=== PATIENT | female | born 1965 | race Caucasian/White ===

== ENCOUNTER 2018-02-06 16:42 | Emergency (ER) | payer OTHER ==
--- NOTE | 2018-02-06 17:28 | RAD REPORT ---
EXAM DESCRIPTION: CT - Stone Protocol - 02/06/2018 5:20 pm CLINICAL HISTORY: Flank pain. ABD PAIN COMPARISON: Abdomen Pelvis W Contrast dated 10/30/2017; THORAX WO CONTRAST dated 09/06/2014 TECHNIQUE: Axial images were obtained without oral or IV contrast. Lack of contrast limits solid org an and vascular assessment. The [id number] spans the entirety of the system partially obscuring uppermost abdomen and lung bases. Coronal reformatted images were obtained and reviewed. All CT scans are performed using dose optimization technique as appropriate and may include automated exposure control or mA/KV adjustment according to patient size. FINDINGS: The lung bases are mildly emphysematous. Imaged portions of the liver and spleen show no suspicious findings on non-contrast imaging.Cholecyst ectomy clips. The pancreas and adrenal glands are normal. No pathologic lymphadenopathy in the abdome n or pelvis. Aortic atherosclerosis No urinary tract stones or obstructive uropathy. No bowel obstruction, free air, free fluid or abscess. Appendectomy. No significant bony abnormality. [id number] lumbosacral degenerative change. IMPRESSION: No urinary tract stones or obstructive uropathy.
--- NOTE | 2018-02-06 17:32 | EDPHYS ---
Physician Documentation [facility] Name: Cheryl Ovalles Age: 53 yrs Sex: Female : 1965 Arrival Date: 02/06/2018 Time: 16:44 Bed 15 Private MD: Олег Flores E ED Physician Chucho Martinez HPI: 02/06 17:22 This 53 yrs old Female presents to ER via Wheelchair with complaints of snw Abdominal Pain. 17:22 The patient presents with abdominal pain right lower quadrant. Onset: The snw symptoms/episode began/occurred suddenly, just prior to arrival, today. The symptoms do not radiate. Associated signs and symptoms: none. The symptoms are described as sharp. Severity of pain: At its worst the pain was moderate. The patient has not experienced similar symptoms in the past. just finished Levaquin and Prednisone for URI. 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 LMP N/A - Hysterectomy aj Historical: - Allergies: 16:54 Imitrex; aj - Home Meds: 16:54 Cymbalta 60 mg oral cpDR 1 cap once daily [Active]; metformin 500 mg Oral tr24 1 tab aj twice a day [Active]; losartan oral oral [Active]; Plavix 75 mg Oral tab 1 tab once daily [Active]; topiramate oral oral [Active]; Amitriptyline Oral [Active]; Simvastatin Oral [Active]; Ranitidine Oral [Active]; gabapentin oral oral [Active]; hydrocodone-acetaminophen 7.5-325 mg Oral tab 1 tab every 6 hours [Active]; Promethazine Oral [Active]; promethazine-codeine 6.25-10 mg/5 mL Oral syrp 5 mL every 6 hours [Active]; Xanax Oral [Active]; - PMHx: 16:54 Hypertension; Fibromyalgia; Chronic pain; aj - PSHx: 16:54 Heart stents; Cholecystectomy; Appendectomy; Hysterectomy; aj - Immunization history:: Adult Immunizations up to date. - Social history:: Smoking status: Patient uses tobacco products, smokes one pack cigarettes per day. - Ebola Screening: : Patient negative for fever greater than or equal to 101.5 degrees Fahrenheit, and additional compatible Ebola Virus Disease symptoms Patient denies exposure to infectious person Patient denies travel to an Ebola-affected area in the 21 days before illness onset No symptoms or risks identified at this time. ROS: 17:19 Constitutional: Negative for fever, chills, and weight loss, Eyes: Negative for injury, snw pain, redness, and discharge, ENT: Negative for injury, pain, and discharge, Neck: Negative for injury, pain, and swelling, Back: Negative for injury and pain, : Negative for injury, bleeding, discharge, and swelling, MS/Extremity: Negative for injury and deformity, Skin: Negative for injury, rash, and discoloration, Neuro: Negative for headache, weakness, numbness, tingling, and seizure. 17:19 Cardiovascular: Positive for 17:19 Respiratory: Negative for cough. 17:19 Abdomen/GI: Positive for abdominal pain, of the right lower quadrant. Exam: 17:18 Head/Face: Normocephalic, atraumatic. Eyes: Pupils equal round and reactive to light, snw extra-ocular motions intact. Lids and lashes normal. Conjunctiva and sclera are non-icteric and not injected. Cornea within normal limits. Periorbital areas with no swelling, redness, or edema. ENT: Nares patent. No nasal discharge, no septal abnormalities noted. Tympanic membranes are normal and external auditory canals are clear. Oropharynx with no redness, swelling, or masses, exudates, or evidence of obstruction, uvula midline. Mucous membranes moist. Neck: Trachea midline, no thyromegaly or masses palpated, and no cervical lymphadenopathy. Supple, full range of motion without nuchal rigidity, or vertebral point tenderness. No Meningismus. Chest/axilla: Normal chest wall appearance and motion. Nontender with no deformity. No lesions are appreciated. 17:18 Abdomen/GI: Soft, non-tender, with normal bowel sounds. No distension or tympany. No guarding or rebound. No evidence of tenderness throughout. Back: No spinal tenderness. No costovertebral tenderness. Full range of motion. Skin: Warm, dry with normal turgor. Normal color with no rashes, no lesions, and no evidence of cellulitis. MS/ Extremity: Pulses equal, no cyanosis. Neurovascular intact. Full, normal range of motion. Neuro: Awake and alert, GCS 15, oriented to person, place, time, and situation. Cranial nerves II-XII grossly intact. Motor strength 5/5 in all extremities. Sensory grossly intact. Cerebellar exam normal. Normal gait. 17:18 Constitutional: The patient appears alert, awake, obese. 17:18 Cardiovascular: Rate: tachycardic, Rhythm: regular. 17:18 Respiratory: the patient does not display signs of respiratory distress, Respirations: shallow respirations, Breath sounds: are clear throughout, heavy cigarette odor . Vital Signs: 16:54 BP 98 / 66; Pulse 102; Resp 20; Temp 98.6; Pulse Ox 95% on R/A; Weight 88 kg; Height 5 aj ft. 4 in. (162.56 cm); 17:47 BP 103 / 67; Pulse 98; Resp 17; Pulse Ox 99% on R/A; rb1 16:54 Body Mass Index 33.30 (88.00 kg, 162.56 cm) aj MDM: 17:04 Patient medically screened. snw 17:33 Data reviewed: vital signs, nurses notes. Data interpreted: Pulse oximetry: on room air snw is 95 %. Interpretation: acceptable. Counseling: I had a detailed discussion with the patient and/or guardian regarding: the historical points, exam findings, and any diagnostic results supporting the discharge/admit diagnosis, radiology results, the need for outpatient follow up, to return to the emergency department if symptoms worsen or persist or if there are any questions or concerns that arise at home. Special discussion: Based on the patient's Hx, exam, and Dx evaluation, there is no indication for emergent surgery or inpatient Tx. It is understood by the patient/guardian that if the Sx's persist or worsen they need to return immediately for re-evaluation. Based on the history and exam findings, there is no indication for further emergent testing or inpatient evaluation. I discussed with the patient/guardian the need to see the primary care provider for further evaluation of the symptoms. Medical screen evaluation completed. EMTALA emergency medical condition absent. 02/06 16:54 Order name: Urine Culture [facility] 02/06 16:54 Order name: Urine Microscopic Only [facility] 02/06 17:04 Order name: CT Stone Protocol; Complete Time: 17:30 [facility] 02/06 18:28 Order name: Urine Dipstick--Ancillary (enter results) [facility] 02/06 18:28 Order name: Urine --Ancillary (enter results) 02/06 16:54 Order name: Urine Dipstick-Ancillary (obtain specimen); Complete Time: 18:26 snw Administered Medications: 17:47 Drug: TORadol 60 mg Route: IM; Site: left gluteus; rb1 18:10 Follow up: Response: No adverse reaction; Pain is decreased rb1 Disposition: 18:44 Co-signature as Attending Physician, Chucho Martinez MD I agree with the assessment and kdr plan of care. Disposition: 02/06/18 17:32 Discharged to Home. Impression: Lower abdominal pain, unspecified. - Condition is Stable. - Discharge Instructions: Abdominal Pain, Adult, Pain Without a Known Cause. - Prescriptions for Gas- X Ultra-Strength - take 1 unit by ORAL route 1-3 times daily; 1 box. Bentyl 20 mg Oral Tablet - take 1 tablet by ORAL route every 6 hours As needed; 20 tablet. - Medication Reconciliation Form, Thank You Letter, Antibiotic Education, Prescription Opioid Use form. - Follow up: Олег Flores MD; When: 48 Hours; Reason: Recheck today's complaints, Continuance of care, Re-evaluation by your physician. Follow up: Emergency Department; When: As needed; Reason: Worsening of condition. Signatures: Dispatcher [employer] EDChristy Mcmillan RN RN Chucho Kim MD MD [facility] Soila Erazo, CERTIFIED ENERGY MANAGER-C CERTIFIED ENERGY MANAGER-Csnw Breana Still, RN RN rb1 Corrections: (The following items were deleted from the chart) 18:32 17:32 02/06/2018 17:32 Discharged to Home. Impression: Lower abdominal pain, rb1 unspecified. Condition is Stable. Forms are Medication Reconciliation Form, Thank You Letter, Antibiotic Education, Prescription Opioid Use. Follow up: Олег Flores; When: 48 Hours; Reason: Recheck today's complaints, Continuance of care, Re-evaluation by your physician. Follow up: Emergency Department; When: As needed; Reason: Worsening of condition. snw
--- NOTE | 2018-02-06 17:32 | ER ---
Nurse's Notes [facility] Name: Cheryl Ovalles Age: 53 yrs Sex: Female : 1965 Arrival Date: 02/06/2018 Time: 16:44 Bed 15 Private MD: Олег Flores E Diagnosis: Lower abdominal pain, unspecified Presentation: 02/06 16:50 Presenting complaint: Patient states: RLQ abdominal pain that started suddenly [place]. Patient ambulated in to ER with steady gait. Transition of care: patient was not received from another setting of care. Onset of symptoms was February 06, 2018. Risk Assessment: Do you want to hurt yourself or someone else? Patient reports no desire to harm self or others. Initial Sepsis Screen: Does the patient meet any 2 criteria? No. Patient's initial sepsis screen is negative. Does the patient have a suspected source of infection? No. Patient's initial sepsis screen is negative. Care prior to arrival: None. 16:50 Method Of Arrival: Wheelchair aj 16:50 Acuity: ALEXANDER 3 aj Triage Assessment: 16:54 General: Appears in no apparent distress. comfortable, Behavior is calm, cooperative, aj appropriate for age. Pain: Complains of pain in right lower quadrant. Neuro: Level of Consciousness is awake, alert, obeys commands, Oriented to person, place, time, situation, Appropriate for age. Respiratory: Airway is patent Respiratory effort is even, unlabored, Respiratory pattern is regular, symmetrical. GI: Abdomen is obese, Reports lower abdominal pain. Derm: Skin is intact, is healthy with good turgor, Skin is pink, warm \T\ dry. normal. 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 aj Historical: - Allergies: 16:54 Imitrex; aj - Home Meds: 16:54 Cymbalta 60 mg oral cpDR 1 cap once daily [Active]; metformin 500 mg Oral tr24 1 tab aj twice a day [Active]; losartan oral oral [Active]; Plavix 75 mg Oral tab 1 tab once daily [Active]; topiramate oral oral [Active]; Amitriptyline Oral [Active]; Simvastatin Oral [Active]; Ranitidine Oral [Active]; gabapentin oral oral [Active]; hydrocodone-acetaminophen 7.5-325 mg Oral tab 1 tab every 6 hours [Active]; Promethazine Oral [Active]; promethazine-codeine 6.25-10 mg/5 mL Oral syrp 5 mL every 6 hours [Active]; Xanax Oral [Active]; - PMHx: 16:54 Hypertension; Fibromyalgia; Chronic pain; aj - PSHx: 16:54 Heart stents; Cholecystectomy; Appendectomy; Hysterectomy; aj - Immunization history:: Adult Immunizations up to date. - Social history:: Smoking status: Patient uses tobacco products, smokes one pack cigarettes per day. - Ebola Screening: : Patient negative for fever greater than or equal to 101.5 degrees Fahrenheit, and additional compatible Ebola Virus Disease symptoms Patient denies exposure to infectious person Patient denies travel to an Ebola-affected area in the 21 days before illness onset No symptoms or risks identified at this time. Screenin:00 Abuse screen: Denies threats or abuse. Nutritional screening: No deficits noted. rb1 Tuberculosis screening: No symptoms or risk factors identified. Fall Risk None identified. Assessment: 17:00 General: Appears in no apparent distress. comfortable, Behavior is calm, cooperative. rb1 Pain: Complains of pain in right lower quadrant Pain currently is 9 out of 10 on a pain scale. Neuro: Level of Consciousness is awake, alert, obeys commands, Oriented to person, place, time, situation. Cardiovascular: Capillary refill < 3 seconds is brisk in bilateral fingers. Respiratory: Airway is patent Respiratory effort is even, unlabored, Respiratory pattern is regular, symmetrical. GI: Bowel sounds present X 4 quads. Abd is soft Abdomen is tender to palpation in right lower quadrant Reports nausea. : No signs and/or symptoms were reported regarding the genitourinary system. Derm: Skin is pink, warm \T\ dry. 18:00 Reassessment: Patient appears in no apparent distress at this time. Patient and/or rb1 family updated on plan of care and expected duration. Pain level reassessed. Patient is alert, oriented x 3, equal unlabored respirations, skin warm/dry/pink. Patient states symptoms have improved. Vital Signs: 16:54 BP 98 / 66; Pulse 102; Resp 20; Temp 98.6; Pulse Ox 95% on R/A; Weight 88 kg; Height 5 aj ft. 4 in. (162.56 cm); 17:47 BP 103 / 67; Pulse 98; Resp 17; Pulse Ox 99% on R/A; rb1 16:54 Body Mass Index 33.30 (88.00 kg, 162.56 cm) ED Course: 16:44 Patient arrived in ED. as 16:44 Олег Flores MD is Private Physician. as 16:51 Triage completed. aj 16:54 Soila Erazo FNP-C [facility]. snw 16:54 Chucho Martinez MD is Attending Physician. snw 16:54 Arm band placed on left wrist. Patient placed in an exam room. aj 17:00 Patient has correct armband on for positive identification. Bed in low position. Call rb1 light in reach. Side rails up X 1. Pulse ox on. NIBP on. 17:00 Warm blanket given. rb1 17:20 CT Stone Protocol In Process Unspecified. EDMS 17:21 CT completed. Patient moved to CT via wheelchair. cw1 17:31 Олег Flores MD is Referral Physician. snw 17:41 Breana Still, RN is Primary Nurse. rb1 18:20 No provider procedures requiring assistance completed. Patient did not have IV access rb1 during this emergency room visit. 18:26 Urine collected: clean catch specimen, clear. dh3 Administered Medications: 17:47 Drug: TORadol 60 mg Route: IM; Site: left gluteus; rb1 18:10 Follow up: Response: No adverse reaction; Pain is decreased rb1 Outcome: 17:32 Discharge ordered by . snw 18:20 Patient left the ED. rb1 18:20 Discharged to home via wheelchair, with family. rb1 18:20 Condition: stable 18:20 Discharge instructions given to patient, Instructed on discharge instructions, follow up and referral plans. medication usage, Demonstrated understanding of instructions, follow-up care, medications, Prescriptions given X 2. Signatures: Dispatcher [employer] Christy Colin RN RN aj Therrien, Shelly, FNP-C FNP-Kristin Gupta Crystal cw1 Breana Still, RN RN rb1 Maria Elena Clemente 3 Corrections: (The following items were deleted from the chart) 19:17 18:32 Patient left the ED. rb1 rb1 19:20 18:10 Patient left the ED. rb1 rb1
[2018-02-06] MEDS ORDERED: KETOROLAC 30 MG/ML INJ ONE (17:47)
[2018-02-06 18:45] VITALS: BP 98/66; TEMP 98.6; O2SAT 95
[2018-02-06 18:45] LABS: Urine Blood NEGATIVE (NEG); Urine Glucose NEGATIVE (NEG); Urine Protein NEGATIVE (NEG); Urine Specific Gravity 1.025 (1.005-1.030); Urine pH 5.5 (5.0-7.0)
[2018-02-06 18:46] LABS: Urine Bacteria 20-50 /HPF (<20); Urine Culture Reflex Order NOT NEEDED; Urine Mucus 3+ /HPF (NONE SEEN); Urine RBC <5 /HPF (NONE SEEN)
== END 2018-02-06 18:32 | disposition home or self-care (01) ==
LOC: ER 16:42
DX: R10.31 Right lower quadrant pain (principal); I10 Essential (primary) hypertension; F17.210 Nicotine dependence, cigarettes, uncomplicated; Z79.01 Long term (current) use of anticoagulants; Z88.8 Allergy status to other drugs, medicaments and biological substances; Z95.818 Presence of other cardiac implants and grafts
CPT/HCPCS: 74176; 76377; 81003; 81015; 81025; 87086; 87088; 96372; 99284

== ENCOUNTER 2018-05-18 10:36 | Emergency (ER) | payer OTHER ==
--- OUTSIDE RECORDS SUMMARY | 2018-05-18 10:38 | XMS REPORT ---
:1965 [facility] Address [address] [place] [address] [address] [place] [address] Care Team Providers Name Role Phone Unavailable Unavailable Unavailable Payers Payer Name Policy Type Policy Number Effective Date Expiration Date Problems This patient has no known problems. Allergies, Adverse Reactions, Alerts Allergy Name Allergy Status Severity Reaction(s) Onset Inactive Treating Comments Type Date Date Clinician sumatriptan DA Active U 2018-03 00:00:0 0 Medications This patient has no known medications.
[2018-05-18] MEDS ORDERED: ONDANSETRON 4 MG (ODT) TAB ONE (11:13)
[2018-05-18] MEDS ORDERED: PROMETHAZINE 25 MG TABLET ONE (11:16)
--- NOTE | 2018-05-18 13:55 | RAD REPORT ---
EXAM DESCRIPTION: RAD - Knee Left 3 View - 05/18/2018 1:49 pm CLINICAL HISTORY: PAIN COMPARISON: No comparisons FINDINGS: Mild osteoarthritic changes are present. No fracture, dislocation or evidence of joint eff usion.
--- NOTE | 2018-05-18 13:59 | RAD REPORT ---
EXAM DESCRIPTION: RAD - Lumbar Spine 3 Views - 05/18/2018 1:53 pm CLINICAL HISTORY: PAIN Radiculopathy COMPARISON: No comparisons FINDINGS: Vertebral body heights appear maintained. No compression fracture noted. Disc thinning wit h small posterior osteophyte is present in the lower lumbar levels. No spondylolysis or spondylolisth esis. Atherosclerosis of the abdominal aorta. Cholecystectomy clips are seen. IMPRESSION: Mild lower lumbar spondylosis.
--- NOTE | 2018-05-18 14:07 | ER ---
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 Transition of care: patient was not received from another setting of care. Onset of symptoms was May 18, 2018. Risk Assessment: Do you want to hurt yourself or someone else? Patient reports no desire to harm self or others. Initial Sepsis Screen: Does the patient meet any 2 criteria? No. Patient's initial sepsis screen is negative. Does the patient have a suspected source of infection? No. Patient's initial sepsis screen is negative. Care prior to arrival: None. 10:40 Method Of Arrival: Ambulatory 10:40 Acuity: ALEXANDER 4 Triage Assessment: 10:44 General: Appears in no apparent distress. uncomfortable, Behavior is calm, cooperative, hj appropriate for age. Pain: Complains of pain in left knee, back Pain currently is 9 out of 10 on a pain scale. Musculoskeletal: Circulation, motion, and sensation intact. 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 LMP N/A - Hysterectomy Historical: - Allergies: 10:44 Imitrex; - Home Meds: 10:44 Amitriptyline Oral [Active]; Cymbalta 60 mg Oral cpDR 1 cap once daily [Active]; gabapentin Oral [Active]; hydrocodone-acetaminophen 7.5-325 mg Oral tab 1 tab every 6 hours [Active]; losartan Oral [Active]; metformin 500 mg Oral tr24 1 tab twice a day [Active]; Plavix 75 mg Oral tab 1 tab once daily [Active]; Promethazine Oral [Active]; promethazine-codeine 6.25-10 mg/5 mL Oral syrp 5 mL every 6 hours [Active]; Ranitidine Oral [Active]; Simvastatin Oral [Active]; Xanax Oral [Active]; topiramate Oral [Active]; - PMHx: 10:44 Chronic pain; Fibromyalgia; Hypertension; hj - PSHx: 10:44 Heart stents; Cholecystectomy; Appendectomy; Hysterectomy; hj - Immunization history:: Adult Immunizations up to date. - Social history:: Smoking status: Patient uses tobacco products, Patient uses alcohol, occasionally. - Ebola Screening: : Patient negative for fever greater than or equal to 101.5 degrees Fahrenheit, and additional compatible Ebola Virus Disease symptoms Patient denies exposure to infectious person Patient denies travel to an Ebola-affected area in the 21 days before illness onset. Screenin:44 Abuse screen: Denies threats or abuse. Denies injuries from another. Nutritional hj screening: No deficits noted. Tuberculosis screening: No symptoms or risk factors identified. Fall Risk Fall in past 12 months (25 points). Assessment: 11:00 General: Appears in no apparent distress. comfortable, well groomed, well developed, sg well nourished, Behavior is calm, cooperative, appropriate for age. Pain: Complains of pain in left leg and left knee Quality of pain is described as aching, tender. Neuro: Level of Consciousness is awake, alert, obeys commands, Oriented to person, place, time, situation, Box Finisher are equal bilaterally Moves all extremities. Full function Gait is steady, reports pain while walking at home. Speech is normal, Facial symmetry appears normal. Cardiovascular: Patient's skin is warm and dry. Chest pain is denied. Respiratory: Airway is patent Respiratory effort is even, unlabored, Respiratory pattern is regular, symmetrical, Breath sounds are clear. GI: Reports nausea, reports having a script for Phenergan at home but has not had it filled recently. : No signs and/or symptoms were reported regarding the genitourinary system. EENT: No deficits noted. EENT: No signs and/or symptoms were reported regarding the EENT system. Oral mucosa is moist. Derm: Skin is pink, warm \T\ dry. Musculoskeletal: No signs and/or symptoms reported regarding the musculoskeletal system. 11:48 Reassessment: Patient appears in no apparent distress at this time. pt requesting pain sg medication at this time, notified, pt is currently being treated by pain management docotor, offered non pharm measures at this time. 12:35 Reassessment: Patient appears in no apparent distress at this time. xray contacted, sg spoke with Lucy, informed that the order is received and awaiting an available xray room at this time, pt updated on approx wait time, will continue to monitor. 12:56 Reassessment: Patient appears in no apparent distress at this time. Patient and/or tw2 family updated on plan of care and expected duration. Pain level reassessed. Patient is alert, oriented x 3, equal unlabored respirations, skin warm/dry/pink. 14:30 Reassessment: Patient appears in no apparent distress at this time. Patient and/or tw2 family updated on plan of care and expected duration. Pain level reassessed. Patient is alert, oriented x 3, equal unlabored respirations, skin warm/dry/pink. Vital Signs: 10:45 BP 103 / 68; Pulse 84; Resp 16; Temp 97.8(TE); Pulse Ox 98% on R/A; Weight 89.36 kg; hj Height 5 ft. 1 in. (154.94 cm); Pain 9/10; 12:56 BP 98 / 81; Pulse 80; Resp 16; Pulse Ox 96% on R/A; tw2 14:30 BP 99 / 73; Pulse 82; Resp 16; Pulse Ox 97% on R/A; tw2 10:45 Body Mass Index 37.22 (89.36 kg, 154.94 cm) ED Course: 10:40 Patient arrived in ED. hj 10:43 Triage completed. hj 10:45 Arm band placed on right wrist. hj 10:46 Patient has correct armband on for positive identification. Bed in low position. Call hj light in reach. Side rails up X 1. uses cane. 10:53 Remigio Christianson MD is Attending Physician. gs 11:01 Pete Harrison, RN is Primary Nurse. mh5 11:14 Awaiting for x-ray. sg 11:51 Elevated left leg pt continues to sit in the wheelchair at this time for comfort. sg 12:54 Micheline Fuentes, AJ is Primary Nurse. tw2 13:48 X-ray completed. jr1 13:49 Lumbar Spine (3 Views) XRAY In Process Unspecified. EDMS 13:49 Knee Left 3 View In Process Unspecified. EDMS 14:32 No provider procedures requiring assistance completed. Patient did not have IV access tw2 during this emergency room visit. 14:32 Kulwinder wrap to left knee CMS intact. tw2 Administered Medications: 11:11 Drug: Phenergan 25 mg Route: PO; 11:51 Follow up: Response: No adverse reaction; Nausea is decreased Outcome: 14:06 Discharge ordered by . 14:32 Discharged to home via wheelchair. tw2 14:32 Condition: stable 14:32 Discharge instructions given to patient, Instructed on discharge instructions, follow up and referral plans. Demonstrated understanding of instructions, follow-up care. 14:33 Patient left the ED. tw2 Signatures: Dispatcher [employer] EDMS Pete Harrison RN RN Sonali Smith jr1 Jovanny Aldana RN RN Micheline Fuentes RN RN 2 Julieta Poon [facility] Remigio Christianson MD MD Corrections: (The following items were deleted from the chart) 10:47 10:45 Pulse 84bpm; Resp 16bpm; Pulse Ox 98% RA; Temp 97.8F Temporal; 89.36 kg; Height 5 hj ft. 1 in.; BMI: 37.2; Pain 9/10; hj 14:31 14:30 BP 99 / 73; Pulse 82bpm; Resp 6bpm; Pulse Ox 97% RA; tw2 tw2
--- NOTE | 2018-05-18 14:07 | EDPHYS ---
Physician Documentation [facility] Name: Cheryl Ovalles Age: 53 yrs Sex: Female : 1965 Arrival Date: 05/18/2018 Time: 10:40 Bed 14 Private MD: ED Physician Remigio Christianson HPI: 05/18 13:01 This 53 yrs old Female presents to ER via Ambulatory with complaints of Knee gs Pain, Back Pain. 13:03 Details of fall: The patient fell from seated position, out of a chair, in the shower. gs Onset: The symptoms/episode began/occurred 3 day(s) ago. Associated injuries: The patient sustained injury to the low back, contusion, left knee. Severity of symptoms: At their worst the symptoms were moderate, in the emergency department the symptoms are unchanged. The patient has experienced similar episodes in the past, a few times. The patient has not recently seen a physician. 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 - Hysterectomy hj Historical: - Allergies: 10:44 Imitrex; hj - Home Meds: 10:44 Amitriptyline Oral [Active]; Cymbalta 60 mg Oral cpDR 1 cap once daily [Active]; hj gabapentin Oral [Active]; hydrocodone-acetaminophen 7.5-325 mg Oral tab 1 tab every 6 hours [Active]; losartan Oral [Active]; metformin 500 mg Oral tr24 1 tab twice a day [Active]; Plavix 75 mg Oral tab 1 tab once daily [Active]; Promethazine Oral [Active]; promethazine-codeine 6.25-10 mg/5 mL Oral syrp 5 mL every 6 hours [Active]; Ranitidine Oral [Active]; Simvastatin Oral [Active]; Xanax Oral [Active]; topiramate Oral [Active]; - PMHx: 10:44 Chronic pain; Fibromyalgia; Hypertension; hj - PSHx: 10:44 Heart stents; Cholecystectomy; Appendectomy; Hysterectomy; hj - Immunization history:: Adult Immunizations up to date. - Social history:: Smoking status: Patient uses tobacco products, Patient uses alcohol, occasionally. - Ebola Screening: : Patient negative for fever greater than or equal to 101.5 degrees Fahrenheit, and additional compatible Ebola Virus Disease symptoms Patient denies exposure to infectious person Patient denies travel to an Ebola-affected area in the 21 days before illness onset. ROS: 13:03 All other systems are negative. gs Exam: 13:03 Head/Face: Normocephalic, atraumatic. Eyes: Pupils equal round and reactive to light, gs extra-ocular motions intact. Lids and lashes normal. Conjunctiva and sclera are non-icteric and not injected. Cornea within normal limits. Periorbital areas with no swelling, redness, or edema. ENT: Nares patent. No nasal discharge, no septal abnormalities noted. Tympanic membranes are normal and external auditory canals are clear. Oropharynx with no redness, swelling, or masses, exudates, or evidence of obstruction, uvula midline. Mucous membranes moist. Neck: Trachea midline, no thyromegaly or masses palpated, and no cervical lymphadenopathy. Supple, full range of motion without nuchal rigidity, or vertebral point tenderness. No Meningismus. Chest/axilla: Normal chest wall appearance and motion. Nontender with no deformity. No lesions are appreciated. Cardiovascular: Regular rate and rhythm with a normal S1 and S2. No gallops, murmurs, or rubs. Normal PMI, no JVD. No pulse deficits. Respiratory: Lungs have equal breath sounds bilaterally, clear to auscultation and percussion. No rales, rhonchi or wheezes noted. No increased work of breathing, no retractions or nasal flaring. Abdomen/GI: Soft, non-tender, with normal bowel sounds. No distension or tympany. No guarding or rebound. No evidence of tenderness throughout. Skin: Warm, dry with normal turgor. Normal color with no rashes, no lesions, and no evidence of cellulitis. Neuro: Awake and alert, GCS 15, oriented to person, place, time, and situation. Cranial nerves II-XII grossly intact. Motor strength 5/5 in all extremities. Sensory grossly intact. Cerebellar exam normal. Normal gait. 13:03 Constitutional: The patient appears in no acute distress, alert, awake. 13:03 Back: vertebral tenderness, is appreciated at L3. 13:03 Musculoskeletal/extremity: ROM: no acute changes, Circulation is intact in all extremities. Joints: the left knee displays tenderness. Vital Signs: 10:45 BP 103 / 68; Pulse 84; Resp 16; Temp 97.8(TE); Pulse Ox 98% on R/A; Weight 89.36 kg; hj Height 5 ft. 1 in. (154.94 cm); Pain 9/10; 12:56 BP 98 / 81; Pulse 80; Resp 16; Pulse Ox 96% on R/A; tw2 14:30 BP 99 / 73; Pulse 82; Resp 16; Pulse Ox 97% on R/A; tw2 10:45 Body Mass Index 37.22 (89.36 kg, 154.94 cm) MDM: 11:03 Patient medically screened. 13:03 Differential diagnosis: abrasion, contusion, fracture. Data reviewed: vital signs, nurses notes. Response to treatment: the patient's symptoms have markedly improved after treatment, and as a result, I will discharge patient. 14:06 Counseling: I had a detailed discussion with the patient and/or guardian regarding: the gs historical points, exam findings, and any diagnostic results supporting the discharge/admit diagnosis, radiology results, the need for outpatient follow up. 05/18 11:07 Order name: Lumbar Spine (3 Views) XRAY; Complete Time: 14:05 05/18 13:40 Order name: Knee Left 3 View; Complete Time: 14:05 EDMS 05/18 14:31 Order name: Kulwinder Wrap; Complete Time: 14:31 tw2 Administered Medications: 11:11 Drug: Phenergan 25 mg Route: PO; 11:51 Follow up: Response: No adverse reaction; Nausea is decreased Disposition: 05/18/18 14:06 Discharged to Home. Impression: Sprain of ligaments of lumbar spine, Sprain of other specified parts of left knee. - Condition is Stable. - Discharge Instructions: Knee Sprain, Back Exercises, Klmd-id-[id number]. - Work release form, Medication Reconciliation Form, Thank You Letter, Antibiotic Education, Prescription Opioid Use form. - Follow up: Private Physician; When: 2 - 3 days; Reason: Re-evaluation by your physician. Signatures: Dispatcher [employer] EDUT Pete Harrison RN RN Jovanny Aldana RN RN Micheline Fuentes RN RN tw2 Remigio Christianson MD MD Corrections: (The following items were deleted from the chart) 13:40 11:07 Knee Right 3 View+RAD.RAD.BRZ ordered. EDUT EDUT 14:33 14:06 05/18/2018 14:06 Discharged to Home. Impression: Sprain of ligaments of lumbar tw2 spine; Sprain of other specified parts of left knee. Condition is Stable. Forms are Medication Reconciliation Form, Thank You Letter, Antibiotic Education, Prescription Opioid Use. Follow up: Private Physician; When: 2 - 3 days; Reason: Re-evaluation by your physician. gs
[2018-05-18 14:38] VITALS: TEMP 97.8
[2018-05-18 14:40] VITALS: BP 99/73; O2SAT 97
== END 2018-05-18 14:33 | disposition home or self-care (01) ==
LOC: ER 10:36
DX: S33.5XXA Sprain of ligaments of lumbar spine, initial encounter (principal); S83.92XA Sprain of unspecified site of left knee, initial encounter; W18.2XXA Fall in (into) shower or empty bathtub, initial encounter; Y93.89 Activity, other specified; Y92.002 Bathroom of unspecified non-institutional (private) residence as the place of occurrence of the external cause; I10 Essential (primary) hypertension; M79.7 Fibromyalgia; Z88.8 Allergy status to other drugs, medicaments and biological substances
CPT/HCPCS: 72100; 99284

== ENCOUNTER 2019-01-20 17:19 | Emergency (ER) | payer OTHER ==
--- OUTSIDE RECORDS SUMMARY | 2019-01-20 17:21 | XMS REPORT ---
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 Assessment Simple chronic bronchitis J41.0 Active Assessment Tobacco abuse counseling Z71.6 Active Problem Diabetes 1.5, 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 Problem Other chronic pain G89.29 Active Problem PTSD (post-traumatic stress F43.10 Active disorder) Assessment PTSD (post-traumatic stress F43.10 Active disorder) Assessment Chronic prescription benzodiazepine Z79.899 Active use Problem Simple chronic bronchitis J41.0 Active Medications Medication Code Code Instructions Start End Status Dosage System Date Date Baclofen [facility] 52656753694 20 MG Orally Active 1 tablet every 8 hrs with food or milk Alprazolam [facility] 76618745394 2 MG Orally Active 1 tablet Twice a day Topiramate ER [facility] [address]-84 200 MG Orally Active 1 capsule Once a day Cymbalta [facility] 56776029465 60 MG Orally Active 1 capsule Once a day Gabapentin [facility] 44250612833 100 MG Orally Active 1 capsule Three times a day Krill Oil [facility] 83462253232 1000 MG Orally Active not defined MegaRed [place]-3 ND 98801851189 500 MG Orally Active not Krill Oil defined Amitriptyline [facility] 17258614917 150 MG Orally Active 1 tablet HCl Once a day Metformin HCl [facility] 45635076659 500 MG Orally Active 1 tablet Once a day with a meal Promethazine HCl [facility] 06976047674 6.25 MG/5ML Active 10 ml as Orally every 6 needed hrs Hydrocodone-Acet [facility] 88187749788 10-325 MG Active 1 tablet aminophen Orally every 6 as needed hrs Colestipol HCl [facility] 24533601636 1 GM Orally Active 2 tablets Once a day Cinnamon [facility] 16065870116 500 MG Orally Active not defined Apple Cider [facility] [address]-09 600 MG Orally Active not Vinegar defined Ibuprofen [facility] 45336267356 800 MG Orally Active 1 tablet Three times a with food day or milk as needed Isosorbide [facility] 80201885591 20 MG Orally Active 1 tablet Mononitrate Twice a day Myrbetriq [facility] 57512014782 50 MG Orally Active 1 tablet Once a day Simvastatin [facility] 25448185072 40 MG Orally Active 1 tablet Once a day in the evening Clopidogrel [facility] 78761906226 75 MG Orally Active 1 tablet Bisulfate Once a day Losartan [facility] 47293493926 50 MG Orally Active 1 tablet Potassium Once a day ProAir HFA [facility] 24519746626 108 (90 Base) Active 2 puffs MCG/ACT as needed Inhalation every 6 hrs Diflucan [facility] 71828383403 150 MG Orally December 17, Active 1 tablet Once a day 2017 Ranitidine HCl [facility] 12096114996 300 MG Orally Active 1 capsule Once a day at bedtime Pantoprazole [facility] 87044477814 40 MG Orally Active 1 tablet Sodium Once a day Albuterol [facility] 42494428797 Active not defined Benzonatate [facility] 75507142163 100 MG Orally Active 1 capsule Three times a as needed day Results No Known Results Summary Purpose eClinicalWorks Submission
--- OUTSIDE RECORDS SUMMARY | 2019-01-20 17:21 | XMS REPORT ---
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 53691154470 20 MG Orally Active 1 tablet every 8 hrs with food or milk Amitriptyline [facility] 02898410464 150 MG Orally Active 1 tablet HCl Once a day Cymbalta [facility] 67203034087 60 MG Orally Active 1 capsule Once a day Metformin HCl [facility] 89424458498 500 MG Orally Active 1 tablet Once a day with a meal Colestipol HCl ND 69193040197 1 GM Orally Active 2 tablets Once a day Apple Cider [facility] [address]-31 600 MG Orally Active not Vinegar defined Krill Oil [facility] 11608794782 1000 MG Orally Active not defined Ibuprofen ND 08602917010 800 MG Orally Active 1 tablet Three times a with food day or milk as needed Topiramate ER [facility] [address]-70 200 MG Orally Active 1 capsule Once a day ProAir HFA [facility] 91396077041 108 (90 Base) Active 2 puffs MCG/ACT as needed Inhalation every 6 hrs Gabapentin ND 86607536360 100 MG Orally Active 1 capsule Three times a day MegaRed [place]-3 ND 54780049761 500 MG Orally Active not Krill Oil defined Cinnamon ND 79639259021 500 MG Orally Active not defined Alprazolam ND 49530883855 2 MG Orally Active 1 tablet Twice a day Isosorbide [facility] 73072148677 20 MG Orally Active 1 tablet Mononitrate Twice a day Losartan [facility] 20088454970 50 MG Orally Active 1 tablet Potassium Once a day Myrbetriq [facility] 25315005051 50 MG Orally Sept Active 1 tablet Once a day [address] [facility] 28388008695 50 Active TAKE 1 Potassium TABLET BY MOUTH DAILY. Simvastatin [facility] 69161767244 40 MG Orally Active 1 tablet Once a day in the evening Clopidogrel [facility] 70068663681 75 MG Orally Active 1 tablet Bisulfate Once a day VESIcare [facility] 57304498021 5 MG Orally September Active 1 tablet Once a day [address] [facility] 86591695200 300 MG Orally Active 1 capsule Once a day at bedtime Promethazine HCl [facility] 43788910512 6.25 MG/5ML Active 10 ml as Orally every 6 needed hrs Diflucan [facility] 85121404512 150 MG Orally December 17, Active 1 tablet Once a day [address] [facility] 83342805765 100 MG Orally Active 1 capsule Three times a as needed day Albuterol [facility] 47713303682 Active not defined Pantoprazole [facility] 27490586174 40 MG Orally Active 1 tablet Sodium Once a day Hydrocodone-Acet [facility] 10962621086 10-325 MG Active 1 tablet aminophen Orally every 6 as needed hrs Results No Known Results Summary Purpose eClinicalWorks Submission
--- OUTSIDE RECORDS SUMMARY | 2019-01-20 17:21 | XMS REPORT ---
:1965 [facility] Address [address] [place] [address] Care Team Providers Name Role Phone Unavailable [...]
--- OUTSIDE RECORDS SUMMARY | 2019-01-20 17:21 | XMS REPORT ---
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 Problem Tobacco abuse counseling Z71.6 Active Assessment PTSD (post-traumatic stress F43.10 Active disorder) Problem Other chronic pain G89.29 Active Problem Simple chronic bronchitis J41.0 Active Medications Medication Code Code Instructions Start End Status Dosage System Date Date Ibuprofen [facility] 35621035397 800 MG Orally Active 1 tablet Three times a with food day or milk as needed Baclofen ND 15334056400 20 MG Orally Active 1 tablet every 8 hrs with food or milk Clopidogrel ND 26641869583 75 MG Orally Active 1 tablet Bisulfate Once a day Metformin HCl ND 73457716981 500 MG Orally Active 1 tablet Once a day with a meal Colestipol HCl ND 52303114039 1 GM Orally Active 2 tablets Once a day Cinnamon ND 50677996758 500 MG Orally Active not defined Apple Cider [facility] [address]-49 600 MG Orally Active not Vinegar defined Isosorbide [facility] 23935954477 20 MG Orally Active 1 tablet Mononitrate Twice a day Topiramate ER [facility] [address]-10 200 MG Orally Active 1 capsule Once a day Pantoprazole [facility] 02153943426 40 MG Orally Active 1 tablet Sodium Once a day MegaRed [place]-3 ND 04588372002 500 MG Orally Active not Krill Oil defined Benzonatate ND 25033244832 100 MG Orally Active 1 capsule Three times a as needed day Krill Oil [facility] 01074036266 1000 MG Orally Active not defined Diflucan ND 53369906123 150 MG Orally December 17, Active 1 tablet Once a day 2017 Losartan ND 34557527613 50 MG Orally Active 1 tablet Potassium Once a day Promethazine HCl [facility] 87977454394 6.25 MG/5ML Active 10 ml as Orally every 6 needed hrs Myrbetriq [facility] 26622045073 50 MG Orally Active 1 tablet Once a day Amitriptyline [facility] 97822547976 150 MG Orally Active 1 tablet HCl Once a day Simvastatin [facility] 46913777255 40 MG Orally Active 1 tablet Once a day in the evening Alprazolam [facility] 98267376873 2 MG Orally Active 1 tablet Twice a day ProAir HFA [facility] 57747793138 108 (90 Base) Active 2 puffs MCG/ACT as needed Inhalation every 6 hrs Cymbalta [facility] 80480519808 60 MG Orally Active 1 capsule Once a day Hydrocodone-Acet [facility] 45978708211 10-325 MG Active 1 tablet aminophen Orally every 6 as needed hrs Ranitidine HCl [facility] 68994160484 300 MG Orally Active 1 capsule Once a day at bedtime Albuterol [facility] 67225516947 Active not defined Gabapentin [facility] 50610683972 100 MG Orally Active 1 capsule Three times a day Results No Known Results Summary Purpose eClinicalWorks Submission
--- OUTSIDE RECORDS SUMMARY | 2019-01-20 17:21 | XMS REPORT ---
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 Problem Tobacco abuse counseling Z71.6 Active Assessment PTSD (post-traumatic stress F43.10 Active disorder) Problem Other chronic pain G89.29 Active Problem Simple chronic bronchitis J41.0 Active Medications Medication Code Code Instructions Start End Status Dosage System Date Date Colestipol HCl [facility] 58203859380 1 GM Orally Active 2 tablets Once a day Gabapentin [facility] 55568260354 100 MG Orally Active 1 capsule Three times a day ProAir HFA [facility] 15714002068 108 (90 Base) Active 2 puffs MCG/ACT as needed Inhalation every 6 hrs Alprazolam [facility] 30166404330 1 MG Orally Active 1 tablet Twice a day Clopidogrel ND 63653669506 75 MG Orally Active 1 tablet Bisulfate Once a day Amitriptyline ND 17542957697 150 MG Orally Active 1 tablet HCl Once a day Baclofen ND 84629342473 20 MG Orally Active 1 tablet every 8 hrs with food or milk Hydrocodone-Acet [facility] 69084666453 10-325 MG Active 1 tablet aminophen Orally every 6 as needed hrs Ranitidine HCl ND 00668357303 300 MG Orally Active 1 capsule Once a day at bedtime Apple Cider [facility] [address]-14 600 MG Orally Active not Vinegar defined Diflucan ND 99426031941 150 MG Orally December 17, Active 1 tablet Once a day 2017 Cymbalta [facility] 87070572021 60 MG Orally Active 1 capsule Once a day Isosorbide [facility] 42264391994 20 MG Orally Active 1 tablet Mononitrate Twice a day Ibuprofen [facility] 28965232853 800 MG Orally Active 1 tablet Three times a with food day or milk as needed Benzonatate [facility] 41610806271 100 MG Orally Active 1 capsule Three times a as needed day MegaRed [place]-3 [facility] 42664682146 500 MG Orally Active not Krill Oil defined Promethazine HCl [facility] 01022872858 6.25 MG/5ML Active 10 ml as Orally every 6 needed hrs Topiramate ER [facility] [address]-74 200 MG Orally Active 1 capsule Once a day Pantoprazole [facility] 10995678933 40 MG Orally Active 1 tablet Sodium Once a day Albuterol [facility] 78140820451 Active not defined Losartan [facility] 68590726388 50 Active TAKE 1 Potassium TABLET BY MOUTH DAILY. Krill Oil [facility] 24835724907 1000 MG Orally Active not defined Losartan [facility] 74079287624 50 MG Orally Active 1 tablet Potassium Once a day Metformin HCl [facility] 49158799501 500 MG Orally Active 1 tablet Once a day with a meal Myrbetriq [facility] 06969172624 50 MG Orally Active 1 tablet Once a day Cinnamon ND 36248372422 500 MG Orally Active not defined Simvastatin [facility] 54661848066 40 MG Orally Active 1 tablet Once a day in the evening Results No Known Results Summary Purpose eClinicalWorks Submission
--- OUTSIDE RECORDS SUMMARY | 2019-01-20 17:21 | XMS REPORT ---
:1965 Author Organization eClinicalWorks Care Team Providers Name Role Phone Andrew Ledesma Provider Role Unavailable Allergies, Adverse Reactions, Alerts Substance Reaction Event Type Imitrex Info Not Available Drug Allergy Problems Problem Type Condition Code Onset Dates Condition Status Assessment PTSD (post-traumatic stress F43.10 Active disorder) Problem Simple chronic bronchitis J41.0 Active Assessment Tobacco abuse counseling Z71.6 Active Assessment Gastroesophageal reflux disease K21.9 Active without esophagitis Assessment Body mass index (BMI) of 35.0-35.9 Z68.35 Active in adult Assessment Diabetes 1.5, 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 84301486350 300 MG Orally Active 1 capsule Once a day at bedtime Pantoprazole [facility] 14265843012 40 MG Orally Active 1 tablet Sodium Once a day Albuterol ND 86642559820 Active not defined Losartan [facility] 86214099574 50 MG Orally Active 1 tablet Potassium Once a day VESIcare ND 67015055146 5 MG Orally September Active 1 tablet Once a day 2018 Diflucan ND 35376092807 150 MG Orally December 17, Active 1 tablet Once a day 2017 Simvastatin ND 66642955781 40 Active TAKE 1 TABLET BY MOUTH EVERY DAY IN THE EVERY NIGHT AT BEDTIME Gabapentin [facility] 85441420531 100 MG Orally Active 1 capsule Three times a day Isosorbide [facility] 41632052480 20 MG Orally Active 1 tablet Mononitrate Twice a day Bismuth [facility] 27365764379 262 MG Orally 8 December 30, Feb 28, Active 2 tablets time(s) a day 2018 2018 as needed Apple Cider [facility] [address]-77 600 MG Orally Active not Vinegar defined Myrbetriq ND 17611261548 50 MG Orally Sept Active 1 tablet Once a day 2018 Intrarosa [facility] 87888419828 6.5 mg November 30May 29, Active 1 Vaginally at 2018 2018 bedtime Metformin HCl ND 46254931679 500 Active TAKE 1 TABLET BY MOUTH TWICE DAILY. Ibuprofen ND 43832127861 800 MG Orally Active 1 tablet Three times a with food day or milk as needed Colestipol HCl ND 00556571108 1 GM Orally Active 2 tablets Once a day Hydrocodone-Acet [facility] 40744771638 10-325 MG Active 1 tablet aminophen Orally every 6 as needed hrs Topiramate ER [facility] [address]-31 200 MG Orally Active 1 capsule Once a day Cymbalta [facility] 02093852536 60 MG Orally Active 1 capsule Once a day Isosorbide [facility] 05403895467 30 Active TAKE 1 Mononitrate ER TABLET BY MOUTH DAILY ProAir HFA [facility] 24402786194 108 (90 Base) Active 2 puffs MCG/ACT as needed Inhalation every 6 hrs Promethazine HCl [facility] 11325003574 6.25 MG/5ML Active 10 ml as Orally every 6 needed hrs Clopidogrel ND 33109022558 75 MG Orally Active 1 tablet Bisulfate Once a day Amitriptyline ND 02367976406 150 MG Orally Active 1 tablet HCl Once a day Cinnamon ND 43573159201 500 MG Orally Active not defined Simvastatin ND 41828070803 40 MG Orally Active 1 tablet Once a day in the evening Baclofen ND 40496348397 20 MG Orally Active 1 tablet every 8 hrs with food or milk MegaRed Sidell-3 ND 41557826391 500 MG Orally Active not Krill Oil defined Metformin HCl ND 93393406405 500 MG Orally Active 1 tablet Once a day with a meal Alprazolam ND 87366943407 2 MG Orally Active 1 tablet Twice a day Losartan ND 15488038831 50 Active TAKE 1 Potassium TABLET BY MOUTH DAILY. Krill Oil [facility] 75731429471 1000 MG Orally Active not defined Benzonatate [facility] 48829399337 100 MG Orally Active 1 capsule Three times a as needed day Alprazolam [facility] 78494477870 2 MG Orally November 30, Active 1 tablet Twice a day prn 2018 Results No Known Results Summary Purpose eClinicalWorks Submission
--- OUTSIDE RECORDS SUMMARY | 2019-01-20 17:21 | XMS REPORT ---
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 Problem Tobacco abuse counseling Z71.6 Active Assessment PTSD (post-traumatic stress F43.10 Active disorder) Problem Other chronic pain G89.29 Active Problem Simple chronic bronchitis J41.0 Active Medications Medication Code Code Instructions Start End Status Dosage System Date Date Cymbal [facility] 87258229864 60 MG Orally Active 1 capsule Once a day Diflucan [facility] 30211021847 150 MG Orally December 17, Active 1 tablet Once a day 2017 Alprazolam ND 96376047949 1 MG Orally Active 1 tablet Twice a day Myrbetriq [facility] 21415160923 50 MG Orally Sept Active 1 tablet Once a day 2018 Albuterol [facility] 60563314950 Active not defined Colestipol HCl ND 00315721155 1 GM Orally Active 2 tablets Once a day Gabapentin [facility] 39159513380 100 MG Orally Active 1 capsule Three times a day Clopidogrel [facility] 50382268659 75 MG Orally Active 1 tablet Bisulfate Once a day Alprazolam [facility] 99251845237 2 MG Orally Yoana Active 1 tablet Twice a day 2018 on the tongue and allow to dissolve Baclofen [facility] 56417163000 20 MG Orally Active 1 tablet every 8 hrs with food or milk Pantoprazole [facility] 91653471204 40 MG Orally Active 1 tablet Sodium Once a day ProAir HFA [facility] 36273854412 108 (90 Base) Active 2 puffs as MCG/ACT needed Inhalation every 6 hrs Ranitidine HCl ND 53215455309 300 MG Orally Active 1 capsule Once a day at bedtime Hydrocodone-Acet [facility] 98393200132 10-325 MG Active 1 tablet aminophen Orally every 6 as needed hrs Metformin HCl [facility] 57094644179 500 MG Orally Active 1 tablet Once a day with a meal Simvastatin ND 85670652255 40 MG Orally Active 1 tablet Once a day in the evening Apple Cider [facility] [address]-86 600 MG Orally Active not Vinegar defined Benzonatate [facility] 92453564844 100 MG Orally Active 1 capsule Three times a as needed day VESIcare [facility] 97615640816 5 MG Orally September Active 1 tablet Once a day 2018 Losartan [facility] 56438670928 50 Active TAKE 1 Potassium TABLET BY MOUTH DAILY. Cinnamon [facility] 51275448075 500 MG Orally Active not defined Topiramate ER [facility] [address]-01 200 MG Orally Active 1 capsule Once a day Krill Oil [facility] 25766744500 1000 MG Orally Active not defined Isosorbide [facility] 42328824236 20 MG Orally Active 1 tablet Mononitrate Twice a day MegaRed Wilson-3 [facility] 86140517510 500 MG Orally Active not Krill Oil defined Losartan [facility] 21879101009 50 MG Orally Active 1 tablet Potassium Once a day Amitriptyline [facility] 93960484545 150 MG Orally Active 1 tablet HCl Once a day Ibuprofen ND 78846396242 800 MG Orally Active 1 tablet Three times a with food day or milk as needed Promethazine HCl [facility] 39683216352 6.25 MG/5ML Active 10 ml as Orally every 6 needed hrs Results No Known Results Summary Purpose eClinicalWorks Submission
--- OUTSIDE RECORDS SUMMARY | 2019-01-20 17:21 | XMS REPORT ---
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
[2019-01-20 18:29] LABS: Urine Blood NEGATIVE (NEG); Urine Glucose NEGATIVE (NEG); Urine Protein NEGATIVE (NEG); Urine Specific Gravity 1.025 (1.005-1.030); Urine pH 5.5 (5.0-7.0)
[2019-01-20 18:36] LABS: Absolute Lymphocytes (CBC) 2.9 K/uL (0.7-4.9); Basophils % 0.6 % (0-1.3); Hematocrit 38.9 % (36.0-45.0); Lymphocytes % 42.7 % (15.3-44.8); MPV 7.7 fL (7.6-11.3); RBC Red Blood Cell Count 4.23 M/uL (3.86-4.86)
[2019-01-20 18:55] LABS: ALT/SGPT 37 U/L (12-78); AST/SGOT 16 U/L (15-37); Albumin 4.1 g/dL (3.4-5.0); Alkaline Phosphatase 98 U/L (45-117); BUN Blood Urea Nitrogen 8 mg/dL (7-18); Bicarbonate 25 mmol/L (21-32); Bilirubin Direct < 0.1 mg/dL (0-0.2); Bilirubin Total 0.2 mg/dL (0.2-1.0); Glucose Level 128 mg/dL (74-106); Lipase 105 U/L (73-393); Potassium 3.3 mmol/L (3.5-5.1); Protein, Total 7.2 g/dL (6.4-8.2); Sodium Level 139 mmol/L (136-145)
--- NOTE | 2019-01-20 19:51 | RAD REPORT ---
EXAM DESCRIPTION: CT - Abdomen Pelvis Wo Contrast - 01/20/2019 7:40 pm CLINICAL HISTORY: Abdominal pain. abdominal pain, flank pain COMPARISON: Extremity Venous [facility] dated 03/02/2018Stone Protocol dated 02/06/2018 TECHNIQUE: CT imaging of the abdomen and pelvis was performed without contrast. Solid organ, bowel a nd vascular assessment is limited due to lack of IV and oral contrast. All CT scans are performed using dose optimization technique as appropriate and may include automated exposure control or mA/KV adjustment according to patient size. FINDINGS: The lower lung graham are clear.Cholecystectomy clips The liver appears mildly prominent in size with fatty infiltration suspected.The spleen, pancreas, ad renal glands and kidneys are within normal limits for limited noncontrast assessment. No renal calcul us or hydronephrosis seen. No bowel obstruction, free air, free fluid or abscess. Aortic atherosclerosis. The appendix is normal . The osseous structures are within normal limits. IMPRESSION: No acute intra-abdominal or pelvic findings. Hepatomegaly with underlying fatty liver alonso spected. A limited non-contrast examination was performed as detailed.
[2019-01-20 20:33] LABS: Barbiturates NEGATIVE (NEGATIVE); Benzodiazepines POSITIVE (NEGATIVE); Cocaine NEGATIVE (NEGATIVE); METHAMPHETAM NEGATIVE (NEGATIVE); Methadone NEGATIVE (NEGATIVE); Opiates POSITIVE (NEGATIVE); Phencyclidine NEGATIVE (NEGATIVE); THC Cannibis NEGATIVE (NEGATIVE)
[2019-01-20] MEDS ORDERED: NALOXONE 0.4 MG/ML VIAL ONE (20:34)
--- NOTE | 2019-01-20 22:26 | EDPHYS ---
Physician Documentation [facility] Name: Cheryl Ovalles Age: 53 yrs Sex: Female : 1965 Arrival Date: 01/20/2019 Time: 17:16 Bed 7 Private MD: ED Physician Chucho Martinez HPI: 01/20 18:56 This 53 yrs old Female presents to ER via EMS with complaints of Abd Pain > jmm 51 y/o, Leg Pain. 18:56 The patient presents with abdominal pain. Onset: The symptoms/episode began/occurred jmm chronic. The symptoms do not radiate. Associated signs and symptoms: Pertinent positives: nausea. The symptoms are described as achy, sharp. Modifying factors: The symptoms are alleviated by nothing, the symptoms are aggravated by alcohol. The patient has experienced similar episodes in the past, chronically. This is a 53 year old female with a history of schizophrenia, anxiety, depression, htn, GERD, DM that presents to the ED with complaints of chronic abdominal pain worsening. Patient also complains of ongoing chest pain which is currently being evaluated by Dr. Shaffer. Patient is expected to follow up with GI and Cardiology tomorrow for reevaluation. . Historical: - Allergies: 17:25 Imitrex; sg 17:25 tramadol; sg - Home Meds: 17:25 ranitidine HCl 300 mg oral cap 1 cap 2 times per day [Active]; Egottadr-Xogwblfyh-PH sg Otic [Active]; fluconazole 150 mg Oral tab 1 tab [Active]; alprazolam 2 mg Oral tab [Active]; baclofen 20 mg Oral tab 1 tab [Active]; metformin 500 mg Oral tr24 1 tab twice a day [Active]; 23:17 Amitriptyline Oral [Active]; hydrocodone-acetaminophen 7.5-325 mg Oral tab 1 tab every tl2 6 hours [Active]; Xanax Oral [Active]; - PMHx: 17:25 Schizophrenia; Anxiety; Depression; Hypertension; GERD; Diabetes - NIDDM; Chronic pain; sg - PSHx: 17:25 Cholecystectomy; Hysterectomy; Appendectomy; sg - Immunization history:: Adult Immunizations up to date. - Social history:: Smoking status: Patient uses tobacco products, Patient/guardian denies using alcohol, street drugs, IV drugs. - Ebola Screening: : No symptoms or risks identified at this time. ROS: 18:56 Cardiovascular: Positive for chest pain. jm 18:56 Abdomen/GI: Positive for abdominal pain. 18:56 Abdomen/GI: Positive for 18:56 Back: Positive for pain with movement, flank pain. 18:56 Neuro: Positive for headache. 18:56 All other systems are negative. Exam: 18:56 Constitutional: This is a well developed, well nourished patient who is awake, alert, jmm and in no acute distress. Head/Face: atraumatic. Eyes: EOMI, no conjunctival erythema appreciated ENT: Moist Mucus Membranes Neck: Trachea midline, Supple Chest/axilla: Normal chest wall appearance and motion. 18:56 Cardiovascular: Rate: normal, Rhythm: regular, Pulses: no pulse deficits are appreciated. 18:56 Respiratory: the patient does not display signs of respiratory distress, Respirations: normal, Breath sounds: are clear throughout. 18:56 Abdomen/GI: Inspection: abdomen appears normal, Bowel sounds: normal, Palpation: soft, mild abdominal tenderness, in the left lower quadrant. 18:56 Back: ROM is normal. 18:56 Musculoskeletal/extremity: ROM: intact in all extremities. 18:56 Skin: Appearance: Color: normal in color. 18:56 Neuro: Orientation: is normal, Mentation: is normal, Memory: is normal. 18:56 Psych: Behavior/mood is pleasant, cooperative. Vital Signs: 17:20 BP 142 / 77; Pulse 78; Resp 17; Temp 97.8; Pulse Ox 100% on R/A; Pain 10/10; sg 19:57 BP 106 / 62; Pulse 75; Resp 18; Pulse Ox 90% on R/A; tl2 20:46 BP 104 / 63; Pulse 76; Resp 16; Pulse Ox 100% on R/A; tl2 21:07 BP 125 / 84; Pulse 72; Resp 12; Pulse Ox 97% on R/A; tl2 22:28 BP 118 / 66; Pulse 76; Resp 18; Pulse Ox 97% on R/A; tl2 23:12 BP 104 / 59; Pulse 77; Resp 18; Temp 98(O); Pulse Ox 95% on R/A; tl2 MDM: 18:56 Patient medically screened. james 22:24 Data reviewed: vital signs, nurses notes. Counseling: I had a detailed discussion with james the patient and/or guardian regarding: the historical points, exam findings, and any diagnostic results supporting the discharge/admit diagnosis, lab results, the need for outpatient follow up, to return to the emergency department if symptoms worsen or persist or if there are any questions or concerns that arise at home. 22:43 ED course: Patient was somnolent in the ED. Patient became difficult to arouse. Patient james was administered narcan in the ED with improvement of symptoms. Upon discharge patient was alert and non toxic in appearance. Patient given cab voucher. . 01/20 18:15 Order name: Basic Metabolic Panel; Complete Time: 18:56 01/20 18:15 Order name: CBC with Diff; Complete Time: 18:56 01/20 18:15 Order name: Creatinine for Radiology; Complete Time: 18:56 01/20 18:15 Order name: Hepatic Function; Complete Time: 18:56 01/20 18:15 Order name: Lipase; Complete Time: 18:56 01/20 18:22 Order name: Urine Dipstick--Ancillary (enter results); Complete Time: 18:56 ag 01/20 18:15 Order name: IV Saline Lock; Complete Time: 18:16 01/20 18:15 Order name: Labs collected and sent; Complete Time: 18:16 01/20 18:22 Order name: Urine --Ancillary (enter results); Complete Time: 18:56 ag 01/20 18:57 Order name: Troponin (emerg Dept Use Only); Complete Time: 19:27 [facility] 01/20 19:38 Order name: Abdomen ; Complete Time: 19:52 EDMS 01/20 19:56 Order name: UDS; Complete Time: 20:36 tl2 01/20 19:26 Order name: EKG - Nurse/Tech; Complete Time: 20:15 [facility] 01/20 19:52 Order name: Urine Dipstick-Ancillary (obtain specimen); Complete Time: 19:56 [facility] Administered Medications: 20:30 Drug: NARcan 0.4 mg Route: IVP; Site: right antecubital; tl2 21:00 Follow up: Response: No adverse reaction; No adverse reaction, pt awake and alert tl2 Disposition: 01/21 07:52 Co-signature as Attending Physician, Chucho Martinez MD I agree with the assessment and kdr plan of care. Disposition: 01/20/19 22:25 Discharged to Home. Impression: Unspecified abdominal pain. - Condition is Stable. - Discharge Instructions: Abdominal Pain, Adult. - Medication Reconciliation Form, Thank You Letter, Antibiotic Education, Prescription Opioid Use form. - Follow up: Private Physician; When: 2 - 3 days; Reason: Recheck today's complaints, Continuance of care, Re-evaluation by your physician. Signatures: Dispatcher [employer]DA[employer] Pete Harrison, RN RN Chucho Martinez MD MD [facility] Aramis Macias PA PA [facility] Kandice Rodriguez RN RN tl2 Corrections: (The following items were deleted from the chart) 01/20 19:38 18:57 Abdomen Pelvis W Con+CT.RAD.BRZ ordered. [facility] 23:18 22:25 01/20/2019 22:25 Discharged to Home. Impression: Unspecified abdominal pain. tl2 Condition is Stable. Forms are Medication Reconciliation Form, Thank You Letter, Antibiotic Education, Prescription Opioid Use. Follow up: Private Physician; When: 2 - 3 days; Reason: Recheck today's complaints, Continuance of care, Re-evaluation by your physician. [facility]
--- NOTE | 2019-01-20 22:26 | ER ---
Nurse's Notes [facility] Name: Cheryl Ovalles Age: 53 yrs Sex: Female : 1965 Arrival Date: 01/20/2019 Time: 17:16 Bed 7 Private MD: Diagnosis: Unspecified abdominal pain Presentation: 01/20 17:17 Presenting complaint: EMS states: pt was at the GI center for a consultation for a sg possible colonoscopy procedure, pt was reporting LLQ abd pain, pain in bilateral legs and generalized weakness, back pain as well has a headache. Transition of care: patient was not received from another setting of care. Onset of symptoms was January 20, 2019. Risk Assessment: Do you want to hurt yourself or someone else? Patient reports no desire to harm self or others. Initial Sepsis Screen: Does the patient meet any 2 criteria? No. Patient's initial sepsis screen is negative. Does the patient have a suspected source of infection? No. Patient's initial sepsis screen is negative. Care prior to arrival: None. 17:17 Method Of Arrival: [facility] 17:17 Acuity: ALEXANDER 3 sg Historical: - Allergies: 17:25 Imitrex; sg 17:25 tramadol; sg - Home Meds: 17:25 ranitidine HCl 300 mg oral cap 1 cap 2 times per day [Active]; Rdcuhsgg-Pcmyycyfr-FE sg Otic [Active]; fluconazole 150 mg Oral tab 1 tab [Active]; alprazolam 2 mg Oral tab [Active]; baclofen 20 mg Oral tab 1 tab [Active]; metformin 500 mg Oral tr24 1 tab twice a day [Active]; 23:17 Amitriptyline Oral [Active]; hydrocodone-acetaminophen 7.5-325 mg Oral tab 1 tab every tl2 6 hours [Active]; Xanax Oral [Active]; - PMHx: 17:25 Schizophrenia; Anxiety; Depression; Hypertension; GERD; Diabetes - NIDDM; Chronic pain; sg - PSHx: 17:25 Cholecystectomy; Hysterectomy; Appendectomy; sg - Immunization history:: Adult Immunizations up to date. - Social history:: Smoking status: Patient uses tobacco products, Patient/guardian denies using alcohol, street drugs, IV drugs. - Ebola Screening: : No symptoms or risks identified at this time. Screenin:20 Abuse screen: Denies threats or abuse. Denies injuries from another. Nutritional sg screening: No deficits noted. Tuberculosis screening: No symptoms or risk factors identified. Never had TB. Fall Risk None identified. Assessment: 17:20 General: Appears in no apparent distress. well groomed, well developed, well nourished, sg Behavior is calm, cooperative, appropriate for age. Pain: Complains of pain in head, back, abdomen, right leg and left leg. Neuro: Level of Consciousness is awake, obeys commands, drowsy. Oriented to person, place, time, situation, Thread Checker are equal bilaterally Moves all extremities. Speech is slurred, Facial symmetry appears normal. Cardiovascular: Capillary refill is brisk in bilateral fingers Patient's skin is warm and dry. Chest pain is denied. Respiratory: Airway is patent Respiratory effort is even, unlabored, Respiratory pattern is regular, symmetrical, Breath sounds are clear. GI: Bowel sounds present X 4 quads. Abd is soft X 4 quads Abdomen is tender to palpation in right lower quadrant and left lower quadrant. : No signs and/or symptoms were reported regarding the genitourinary system. EENT: No signs and/or symptoms were reported regarding the EENT system. Derm: Skin is pink, warm \T\ dry. Musculoskeletal: No signs and/or symptoms reported regarding the musculoskeletal system. 18:20 Reassessment: pt falls asleep mid sentence, pt denies any neuro symptoms at this time, sg is oriented but just extremely drowsy. 19:57 Reassessment: pt returned from CT and was very drowsy, human resources technician stated that she could tl2 not stay awake in CT. Pt able to be aroused by voice but goes to sleep immediately. PA ordered a UDS. 20:15 Neuro: Level of Consciousness is obtunded, responsive to voice but immediately falls tl2 asleep. Respiratory: Airway is patent Respiratory effort is even, unlabored, Respiratory pattern is regular, symmetrical. 20:16 Reassessment: pt 88% on RA, placed on 2 L per nc, O2 increased to 96%. tl2 20:44 Reassessment: Pt woke up after narcan administration and is able to hold a conversation tl2 and get up to the bedside commode. 20:52 Neuro: Level of Consciousness is awake, alert, obeys commands, Oriented to person, tl2 place, time, situation. Respiratory: Airway is patent Respiratory effort is even, unlabored, Respiratory pattern is regular, symmetrical. 21:17 Neuro: Level of Consciousness is. tl2 21:40 Reassessment: Walking by patient's room saw patient taking pills from her purse. ao Patient denies but pill felt luana her hand and looked like a Achille. Patient was educated not to take personal pill while in ED. 21:48 Reassessment:. Neuro: Level of Consciousness is awake, alert, obeys commands, Oriented tl2 to person, place, time, situation, Pt is sitting up in bed eating a sandwich. . 22:29 Reassessment: Pt approved for discharge, will send pt home by cab, pt verbalized tl2 understanding. 23:12 Reassessment: Patient appears in no apparent distress at this time. Patient and/or tl2 family updated on plan of care and expected duration. Pain level reassessed. Pt awake and alert, ambulated to restroom without assistance. Will accompany pt to cab. Vital Signs: 17:20 BP 142 / 77; Pulse 78; Resp 17; Temp 97.8; Pulse Ox 100% on R/A; Pain 10/10; sg 19:57 BP 106 / 62; Pulse 75; Resp 18; Pulse Ox 90% on R/A; tl2 20:46 BP 104 / 63; Pulse 76; Resp 16; Pulse Ox 100% on R/A; tl2 21:07 BP 125 / 84; Pulse 72; Resp 12; Pulse Ox 97% on R/A; tl2 22:28 BP 118 / 66; Pulse 76; Resp 18; Pulse Ox 97% on R/A; tl2 23:12 BP 104 / 59; Pulse 77; Resp 18; Temp 98(O); Pulse Ox 95% on R/A; tl2 ED Course: 17:16 Patient arrived in ED. sg 17:17 Arm band placed on. sg 17:18 Triage completed. sg 17:25 Patient has correct armband on for positive identification. Bed in low position. Call sg light in reach. Side rails up X2. Pulse ox on. NIBP on. Warm blanket given. Head of bed elevated. 17:57 Pete Harrison, RN is Primary Nurse. sg 18:00 Assisted to bathroom. sg 18:16 Initial lab(s) drawn, by me, sent to lab. Inserted saline lock: 22 gauge in right sg antecubital area, using aseptic technique. Blood collected. 18:36 Aramis Macias PA is PHCP. [facility] 18:36 Chucho Martinez MD is Attending Physician. [facility] 19:04 Primary Nurse role handed off by Pete Harrison RN 19:[address] al 19:41 Abdomen In Process Unspecified. EDMS 20:46 Kandice Rodriguez RN is Primary Nurse. tl2 23:12 No provider procedures requiring assistance completed. IV discontinued, intact, tl2 bleeding controlled, No redness/swelling at site. Pressure dressing applied. Administered Medications: 20:30 Drug: NARcan 0.4 mg Route: IVP; Site: right antecubital; tl2 21:00 Follow up: Response: No adverse reaction; No adverse reaction, pt awake and alert tl2 Outcome: 22:25 Discharge ordered by MD. [facility] 23:12 Discharged to home ambulatory, Via cab tl2 23:12 Condition: stable 23:12 Discharge instructions given to patient, Instructed on discharge instructions, follow up and referral plans. Demonstrated understanding of instructions, follow-up care. 23:18 Patient left the ED. tl2 Signatures: Dispatcher [employer] EDAR Pete Harrison RN RN Aramis Macias PA PA [facility] Kayode Mackey RN RN ao Knox, Taylor, RN RN tl2 Sage Cai Gregory, MD MD gs Corrections: (The following items were deleted from the chart) 21:17 20:44 Reassessment: Pt woke up after narcan administration and is able to hold a tl2 conversation and get up to the bedside commode. tl2
[2019-01-21 01:01] VITALS: BP 104/59; TEMP 98; O2SAT 95
--- NOTE | 2019-01-21 15:03 | EKG ---
Test Date: 2019-01-20 Test Time: 20:07:23 Net Programmer: [email or web address] MEASUREMENT RESULTS: Intervals: Rate: 73 AK: 176 QRSD: 90 QT: 406 QTc: 447 [place]: P: 56 AK: 176 QRS: 62 T: 64 INTERPRETIVE STATEMENTS: Normal sinus rhythm Nonspecific ST and T wave abnormality Abnormal ECG No previous ECG available for comparison Electronically Signed On 01-21-19 15:02:58 CDT by Issa Solares
== END 2019-01-20 23:18 | disposition home or self-care (01) ==
LOC: ER 17:19
DX: R10.9 Unspecified abdominal pain (principal); I10 Essential (primary) hypertension; E11.9 Type 2 diabetes mellitus without complications; F32.9 Major depressive disorder, single episode, unspecified; F20.9 Schizophrenia, unspecified; Z72.0 Tobacco use; Z88.5 Allergy status to narcotic agent; Z88.8 Allergy status to other drugs, medicaments and biological substances
CPT/HCPCS: 36415; 74176; 80048; 80076; 80307; 81003; 81025; 82962; 83690; 84484; 85025; 93005; 96374; 99291; 99292; J2310

== ENCOUNTER 2019-05-02 17:28 | Emergency (ER) | payer OTHER ==
[2019-05-02 19:54] LABS: Basophils % 0.9 % (0-1.3); Hematocrit 41.9 % (36.0-45.0); MPV 7.9 fL (7.6-11.3); RBC Red Blood Cell Count 4.54 M/uL (3.86-4.86)
[2019-05-02 20:14] LABS: ALT/SGPT 36 U/L (12-78); AST/SGOT 19 U/L (15-37); Albumin 4.2 g/dL (3.4-5.0); Alkaline Phosphatase 74 U/L (45-117); BUN Blood Urea Nitrogen 5 mg/dL (7-18); Bicarbonate 26 mmol/L (21-32); Bilirubin Direct < 0.1 mg/dL (0-0.2); Bilirubin Total 0.3 mg/dL (0.2-1.0); Glucose Level 124 mg/dL (74-106); Magnesium 1.9 mg/dL (1.8-2.4); NT PRO-BNP 24 pg/mL (<125); Potassium 3.2 mmol/L (3.5-5.1); Protein, Total 7.6 g/dL (6.4-8.2); Sodium Level 140 mmol/L (136-145); Troponin (Emerg Dept Use Only) < 0.02 ng/mL (0.0-0.045)
[2019-05-02 20:23] LABS: Barbiturates NEGATIVE (NEGATIVE); Benzodiazepines POSITIVE (NEGATIVE); Cocaine NEGATIVE (NEGATIVE); METHAMPHETAM NEGATIVE (NEGATIVE); Methadone NEGATIVE (NEGATIVE); Opiates POSITIVE (NEGATIVE); Phencyclidine NEGATIVE (NEGATIVE); THC Cannibis NEGATIVE (NEGATIVE)
[2019-05-02 20:30] LABS: Urine Blood NEGATIVE (NEG); Urine Glucose NEGATIVE (NEG); Urine Protein NEGATIVE (NEG); Urine pH 5.5 (5.0-7.0)
--- NOTE | 2019-05-02 20:33 | RAD REPORT ---
EXAM DESCRIPTION: CT - Head Brain Wo Cont - 05/02/2019 7:54 pm CLINICAL HISTORY: Fall, head trauma COMPARISON: None. TECHNIQUE: Axial 5 mm thick images of the head were obtained without IV contrast. All CT scans are performed using dose optimization technique as appropriate and may include automated exposure control or mA/KV adjustment according to patient size. FINDINGS: No intracranial hemorrhage, mass, edema or shift of mid-line structures. No acute infarcti on changes seen. No abnormal extra-axial fluid collections. Ventricles are normal. Mastoid air cells and visualized portions of the paranasal sinuses are clear. No acute bony findings. IMPRESSION: Negative non-contrast CT head examination.
--- NOTE | 2019-05-02 20:40 | RAD REPORT ---
EXAM DESCRIPTION: RAD - Chest Single View - 05/02/2019 8:00 pm CLINICAL HISTORY: Chest pain, shortness of breath COMPARISON: February 08 TECHNIQUE: AP portable chest image was obtained 1933 hours . FINDINGS: Lungs are clear. Heart and vasculature are normal. No measurable pleural effusion and no p neumothorax. No acute bony abnormality seen. No acute aortic findings suspected. IMPRESSION: No acute cardiopulmonary process. No significant interval change.
[2019-05-02] MEDS ORDERED: POTASSIUM 25 MEQ EFFERV TAB ONE (21:10)
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
[2019-05-03 01:09] VITALS: TEMP 97.4
[2019-05-03 01:14] VITALS: BP 115/62; O2SAT 95
--- NOTE | 2019-05-03 12:11 | EKG ---
Test Date: 2019-05-02 Test Time: 23:11:21 Food Counter Attendant: JACINDA MEASUREMENT RESULTS: Intervals: Rate: 74 CT: 166 QRSD: 82 QT: 402 QTc: 446 [place]: P: 65 CT: 166 QRS: 66 T: 67 INTERPRETIVE STATEMENTS: Normal sinus rhythm Nonspecific ST and T wave abnormality Abnormal ECG Compared to ECG 05/02/2019 19:44:26 Prolonged QT interval no longer present ST (T wave) deviation still present Electronically Signed On 05-03-19 12:09:03 CDT by Mitchell Lugo
--- NOTE | 2019-05-03 12:12 | EKG ---
Test Date: 2019-05-02 Test Time: 19:44:26 Cylinder Valve Repairer: JACINDA MEASUREMENT RESULTS: Intervals: Rate: 70 UT: 170 QRSD: 84 QT: 426 QTc: 460 [place]: P: 50 UT: 170 QRS: 43 T: 60 INTERPRETIVE STATEMENTS: Normal sinus rhythm Nonspecific ST and T wave abnormality Prolonged QT Abnormal ECG Compared to ECG 01/20/2019 20:07:23 Prolonged QT interval now present ST (T wave) deviation still present Electronically Signed On 05-03-19 12:09:20 CDT by Mitchell Lugo
== END 2019-05-03 00:40 | disposition home or self-care (01) ==
LOC: ER 17:28
DX: R06.02 Shortness of breath (principal); F41.9 Anxiety disorder, unspecified; I10 Essential (primary) hypertension; F17.210 Nicotine dependence, cigarettes, uncomplicated; Z88.5 Allergy status to narcotic agent; Z88.8 Allergy status to other drugs, medicaments and biological substances
CPT/HCPCS: 36415; 70450; 71045; 80048; 80076; 80307; 81003; 81025; 83735; 83880; 84484; 85025; 85610; 93005; 99284

== ENCOUNTER 2021-03-29 15:33 | Emergency (ER) | payer OTHER ==
[2021-03-29 16:13] LABS: Hematocrit 46.1 % (36.0-45.0); Lymphocytes % 38.3 % (15.3-44.8); MPV 7.7 fL (7.6-11.3); RBC Red Blood Cell Count 4.97 M/uL (3.86-4.86)
[2021-03-29] MEDS ORDERED: METOCLOPRAMIDE 10 MG/2mL INJ ONE (16:24)
[2021-03-29] MEDS ORDERED: DIPHENHYDRAMINE 50 MG/ML VIAL ONE (16:24)
[2021-03-29] MEDS ORDERED: KETOROLAC 30 MG/ML INJ ONE (16:25)
[2021-03-29] MEDS ORDERED: NA CHLORIDE 0.9% 1,000 ML ONE (16:25)
[2021-03-29 16:29] LABS: Albumin 4.4 g/dL (3.4-5.0); Bilirubin Direct 0.1 mg/dL (0-0.2); Bilirubin Total 0.6 mg/dL (0.2-1.0); Protein, Total 7.6 g/dL (6.4-8.2)
--- NOTE | 2021-03-29 16:57 | RAD REPORT ---
EXAM DESCRIPTION: CT - Abdomen Pelvis W Contrast - 03/29/2021 4:40 pm CLINICAL HISTORY: Abdominal pain COMPARISON: 2018 TECHNIQUE: Computed axial tomography of the abdomen pelvis was obtained. 100 cc Isovue-300 was admin istered intravenously. Oral contrast was not requested which limits evaluation of bowel. All CT scans are performed using dose optimization technique as appropriate and may include automated exposure control or mA/KV adjustment according to patient size. FINDINGS: Cholecystectomy. The liver, spleen, pancreas, adrenal and kidneys appear unremarkable. There is no evidence of diverticulitis. Hysterectomy. Atherosclerotic disease Apparent thickening of the wall of the distal stomach. Mild dilatation of several loops of fluid-fill ed jejunum IMPRESSION: Apparent thickening of the wall of the distal stomach can be secondary to incomplete dis tention, inflammation or mass Mild dilatation of a several loops of fluid-filled jejunum may indicate an enteritis
[2021-03-29 17:52] LABS: Urine Blood Negative (Negative); Urine Glucose Negative (Negative); Urine Protein Negative (Negative); Urine pH 5.5 (5.0-7.0)
--- NOTE | 2021-03-29 17:52 | ER ---
Nurse's Notes [facility] Name: Cheryl Ovalles Age: 56 yrs Sex: Female : 1965 Arrival Date: 03/29/2021 Time: 15:34 Bed 9 Private MD: Diagnosis: Enteritis;Hypokalemia Presentation: 03/29 15:49 Chief complaint: Patient states: abd pain, nausea, vomiting, and diarrhea. Pt states "I aa5 was told I have a mass on my colon". Coronavirus screen: diarrhea, nausea, vomiting. Ebola Screen: Patient negative for fever greater than or equal to 101.5 degrees Fahrenheit, and additional compatible Ebola Virus Disease symptoms. Initial Sepsis Screen: Does the patient meet any 2 criteria? No. Patient's initial sepsis screen is negative. Does the patient have a suspected source of infection? No. Patient's initial sepsis screen is negative. Risk Assessment: Do you want to hurt yourself or someone else? Patient reports no desire to harm self or others. Onset of symptoms was March 2021. 15:49 Method Of Arrival: Ambulatory aa5 15:49 Acuity: ALEXANDER 3 aa5 Historical: - Allergies: 15:50 Imitrex; aa5 15:50 tramadol; aa5 - PMHx: 15:50 Anxiety; Chronic pain; Depression; Diabetes - NIDDM; GERD; Hypertension; Schizophrenia; aa5 Colon Mass; Migraine; - Immunization history:: Client reports receiving the 2nd dose of the Covid vaccine. - Social history:: Smoking status: Patient reports the use of cigarette tobacco products, smokes one pack cigarettes per day. Screenin:20 Abuse screen: Denies threats or abuse. Nutritional screening: No deficits noted. vg1 Tuberculosis screening: No symptoms or risk factors identified. Fall Risk No fall in past 12 months (0 pts). No secondary diagnosis (0 pts). IV access (20 points). Ambulatory Aid- None/Bed Rest/Nurse Assist (0 pts). Gait- Normal/Bed Rest/Wheelchair (0 pts) Mental Status- Oriented to own ability (0 pts). Total Miranda Fall Scale indicates No Risk (0-24 pts). Assessment: 16:00 General: Appears in no apparent distress. comfortable, Behavior is calm, cooperative. vg1 Pain: Complains of pain in rectum, lower back, ABD, head Pain currently is 8 out of 10 on a pain scale. Pain began about two weeks ago. Neuro: Level of Consciousness is awake, alert, obeys commands, Oriented to person, place, time, situation. Cardiovascular: Patient's skin is warm and dry. Respiratory: Airway is patent Respiratory effort is even, unlabored. GI: Abdomen is round non-distended, Abdomen is tender to palpation X 4 quads. Reports diarrhea, intolerance of food, nausea, vomiting, today when wiping stated there was a 'mucous creamy' substance with 'blood tinged streaks'. : Reports "I think I may have a bladder infection" stated 'having trouble urinating". Provider notified. EENT: No signs and/or symptoms were reported regarding the EENT system. Derm: Skin is intact, is healthy with good turgor. Musculoskeletal: Circulation, motion, and sensation intact. 17:30 Reassessment: Patient appears in no apparent distress at this time. Patient and/or vg1 family updated on plan of care and expected duration. Pain level reassessed. Patient is alert, oriented x 3, equal unlabored respirations, skin warm/dry/pink. Vital Signs: 15:49 BP 144 / 91; Pulse 89; Resp 16 S; Temp 97.3(TE); Pulse Ox 98% on R/A; Weight 74.84 kg aa5 (R); Height 5 ft. 4 in. (162.56 cm) (R); 17:43 BP 168 / 79; Pulse 78; Resp 16; Pulse Ox 99% ; vg1 15:49 Body Mass Index 28.32 (74.84 kg, 162.56 cm) aa5 ED Course: 15:34 Patient arrived in ED. as 15:49 Arm band placed on. aa5 15:50 Triage completed. aa5 15:52 Jackie Scales FNP-C [facility] kb 15:52 Chucho Martinez MD is Attending Physician. kb 15:58 Initial lab(s) drawn, by me, sent to lab. Inserted saline lock: 20 gauge in right aa5 antecubital area, using aseptic technique. Blood collected. 16:15 Trisha Dunn, RN is Primary Nurse. vg1 16:20 Patient has correct armband on for positive identification. Call light in reach. Adult vg1 w/ patient. 16:40 CT Abd/Pelvis - IV Contrast Only In Process Unspecified. EDMS 18:10 No provider procedures requiring assistance completed. IV discontinued, intact, vg1 bleeding controlled, No redness/swelling at site. Pressure dressing applied. Administered Medications: 16:07 Drug: NS 0.9% 1000 ml Route: IV; Rate: 1000 ml; Site: right antecubital; vg1 17:43 Follow up: IV Status: Completed infusion; IV Intake: 1000ml vg1 16:08 Drug: Ketorolac 15 mg Route: IVP; Site: right antecubital; vg1 17:52 Follow up: Response: No adverse reaction; Pain is decreased vg1 16:10 Drug: Reglan (metoCLOPramide) 10 mg Route: IVP; Site: right antecubital; vg1 17:43 Follow up: Response: No adverse reaction vg1 16:13 Drug: Benadryl (diphenhydrAMINE) 12.5 mg Route: IVP; Site: right antecubital; vg1 17:43 Follow up: Response: No adverse reaction vg1 17:35 Drug: Potassium Chloride 40 mEq Route: PO; vg1 18:09 Follow up: Response: No adverse reaction vg1 Intake: 17:43 IV: 1000ml; Total: 1000ml. vg1 Outcome: 17:52 Discharge ordered by . kb 18:10 Discharged to home ambulatory, with friend. vg1 18:10 Condition: stable 18:10 Discharge instructions given to patient, Instructed on discharge instructions, follow up and referral plans. Demonstrated understanding of instructions, follow-up care. 18:11 Patient left the ED. vg1 Signatures: Dispatcher [employer] EDMS Jackie Scales, AUTOMOTIVE SERVICE MANAGEMENT TEACHER-C AUTOMOTIVE SERVICE MANAGEMENT TEACHER-Kristin Villatoro Audri, RN RN aa5 Trisha Dunn RN RN vg1
--- NOTE | 2021-03-29 17:52 | EDPHYS ---
Physician Documentation [facility] Name: Cheryl Ovalles Age: 56 yrs Sex: Female : 1965 Arrival Date: 03/29/2021 Time: 15:34 Bed 9 Private MD: ED Physician Chucho Martinez HPI: 03/29 15:58 This 56 yrs old Female presents to ER via Ambulatory with complaints of kb Abdominal Pain. 15:58 The patient presents with abdominal pain that is diffuse. Onset: The symptoms/episode kb began/occurred 2 week(s) ago. The symptoms do not radiate. Associated signs and symptoms: Pertinent positives: nausea, vomiting, and diarrhea. The symptoms are described as constant. Modifying factors: The symptoms are alleviated by nothing, the symptoms are aggravated by nothing. Severity of pain: At its worst the pain was moderate in the emergency department the pain is unchanged. The patient has not experienced similar symptoms in the past. The patient has been recently seen by a physician: the ER physician, out of Town, 2 week(s) ago. Patient reports abdominal pain, nausea, vomiting, \T\ diarrhea that started a couple of weeks ago. States she was seen at an ER when it started and was diagnosed with a mass on her colon. Has been in contact with Dr. Puentes developed a colonoscopy for follow-up, but has been unable to schedule due to recent weather. States symptoms have not gotten worse they are just persistent.. Historical: - Allergies: 15:50 Imitrex; aa5 15:50 tramadol; aa5 - PMHx: 15:50 Anxiety; Chronic pain; Depression; Diabetes - NIDDM; GERD; Hypertension; Schizophrenia; aa5 Colon Mass; Migraine; - Immunization history:: Client reports receiving the 2nd dose of the Covid vaccine. - Social history:: Smoking status: Patient reports the use of cigarette tobacco products, smokes one pack cigarettes per day. ROS: 15:56 Respiratory: Negative for shortness of breath, cough, wheezing, and pleuritic chest kb pain. 15:56 Constitutional: Positive for chills. 15:56 Abdomen/GI: Positive for abdominal pain, nausea, vomiting, and diarrhea. 15:56 Neuro: Positive for headache. 15:56 All other systems are negative. Exam: 15:58 Constitutional: This is a well developed, well nourished patient who is awake, alert, kb and in no acute distress. Head/Face: Normocephalic, atraumatic. ENT: Moist Mucous membranes Respiratory: Respirations even and unlabored. No increased work of breathing, no retractions or nasal flaring. Skin: Warm, dry with normal turgor. Normal color. MS/ Extremity: Pulses equal, no cyanosis. Neurovascular intact. Full, normal range of motion. Neuro: Awake and alert, GCS 15, oriented to person, place, time, and situation. Moves all extremities. Normal gait. Psych: Awake, alert, with orientation to person, place and time. Behavior, mood, and affect are within normal limits. 15:58 Abdomen/GI: Inspection: abdomen appears normal, Bowel sounds: normal, in all quadrants, Palpation: soft, in all quadrants, mild abdominal tenderness, in all quadrants. Vital Signs: 15:49 BP 144 / 91; Pulse 89; Resp 16 S; Temp 97.3(TE); Pulse Ox 98% on R/A; Weight 74.84 kg aa5 (R); Height 5 ft. 4 in. (162.56 cm) (R); 17:43 BP 168 / 79; Pulse 78; Resp 16; Pulse Ox 99% ; vg1 15:49 Body Mass Index 28.32 (74.84 kg, 162.56 cm) aa5 MDM: 15:52 Patient medically screened. kb 15:58 Data reviewed: vital signs, nurses notes. Data interpreted: Pulse oximetry: on room air kb is 98 %. Interpretation: normal. 15:58 Differential diagnosis: bowel obstruction, diverticulitis, gastritis, non-specific abd kb pain. 17:05 Counseling: I had a detailed discussion with the patient and/or guardian regarding: the kb historical points, exam findings, and any diagnostic results supporting the discharge/admit diagnosis, lab results, radiology results, the need for outpatient follow up, a family practitioner, to return to the emergency department if symptoms worsen or persist or if there are any questions or concerns that arise at home. 03/29 15:52 Order name: Basic Metabolic Panel; Complete Time: 16:31 kb 03/29 15:52 Order name: CBC with Diff; Complete Time: 16:21 kb 03/29 15:52 Order name: Hepatic Function; Complete Time: 16:31 kb 03/29 15:52 Order name: Lipase; Complete Time: 16:31 kb 03/29 15:52 Order name: CT Abd/Pelvis - IV Contrast Only; Complete Time: 17:01 kb 03/29 17:52 Order name: Urine Dipstick-Ancillary; Complete Time: 17:54 EDMS 03/29 15:52 Order name: IV Saline Lock; Complete Time: 15:58 kb 03/29 15:52 Order name: Labs collected and sent; Complete Time: 15:58 kb 03/29 17:05 Order name: PO challenge; Complete Time: 17:08 kb Administered Medications: 16:07 Drug: NS 0.9% 1000 ml Route: IV; Rate: 1000 ml; Site: right antecubital; vg1 17:43 Follow up: IV Status: Completed infusion; IV Intake: 1000ml vg1 16:08 Drug: Ketorolac 15 mg Route: IVP; Site: right antecubital; vg1 17:52 Follow up: Response: No adverse reaction; Pain is decreased vg1 16:10 Drug: Reglan (metoCLOPramide) 10 mg Route: IVP; Site: right antecubital; vg1 17:43 Follow up: Response: No adverse reaction vg1 16:13 Drug: Benadryl (diphenhydrAMINE) 12.5 mg Route: IVP; Site: right antecubital; vg1 17:43 Follow up: Response: No adverse reaction vg1 17:35 Drug: Potassium Chloride 40 mEq Route: PO; vg1 18:09 Follow up: Response: No adverse reaction vg1 Disposition: 19:31 Co-signature as Attending Physician, Chucho Martinez MD I agree with the assessment and kdr plan of care. Disposition Summary: 03/29/21 17:52 Discharge Ordered Location: Home kb Condition: Stable kb Diagnosis - Enteritis kb - Hypokalemia kb Followup: kb - With: Emergency Department - When: As needed - Reason: Worsening of condition Followup: kb - With: Private Physician - When: 2 - 3 days - Reason: Recheck today's complaints, Continuance of care, Re-evaluation by your physician Discharge Instructions: - Discharge Summary Sheet kb - Potassium Content of Foods kb - Hypokalemia kb - Viral Gastroenteritis, Adult, [id number] kb Forms: - Medication Reconciliation Form kb - Thank You Letter kb - Antibiotic Education kb - Prescription Opioid Use kb Prescriptions: - Zofran 4 mg Oral Tablet - take 1 tablet by ORAL route every 6 hours As needed; 20 tablet; Refills: 0, kb Product Selection Permitted Signatures: Dispatcher [employer] Jackie Lennon, PETROLEUM LABORATORY TECHNICIANVickieC Chucho Barriga MD MD kdr Calderon, Audri, RN RN aa5 Trisha Dunn RN RN vg1
[2021-03-29] MEDS ORDERED: POTASSIUM CL SA 10 MEQ TAB PO ONE (17:53)
[2021-03-29 18:49] VITALS: TEMP 97.3
[2021-03-29 18:50] VITALS: BP 168/79; O2SAT 99
== END 2021-03-29 18:11 | disposition home or self-care (01) ==
LOC: ER 15:33
DX: K52.9 Noninfective gastroenteritis and colitis, unspecified (principal); E87.6 Hypokalemia; I10 Essential (primary) hypertension; F17.210 Nicotine dependence, cigarettes, uncomplicated; Z88.5 Allergy status to narcotic agent; Z88.8 Allergy status to other drugs, medicaments and biological substances
CPT/HCPCS: 96361; 85025; 80048; 36415; 80076; 81003; 83690; 74177; 96375; 96374; 99284; Q9967; J2765; J1200; J7030